=== PATIENT | male | born 1940 | race Caucasian/White ===

== ENCOUNTER 2017-06-21 09:25 | Emergency (ER) | payer OTHER ==
[2017-06-21] MEDS ORDERED: NS 0.9% 1000 ML* 1,000 ML IV ONE (09:26)
--- NOTE | 2017-06-21 09:44 | RAD ---
INDICATION: Neurologic change. Code mccoy COMPARISON: None TECHNIQUE: Noncontrast axial source images were acquired from the skull base to the vertex. FINDINGS: Ventricles/sulci: There is mild age-related cortical atrophy with compensatory dilatation of the CSF spaces. Brain parenchyma: There is mild periventricular and subcortical white matter change most consistent with chronic ischemia. Intracranial hemorrhage:None. Extra-axial spaces: There are no abnormal extra axial fluid collections or evidence of extra-axial mass. Calvarium: There is no calvarial fracture or other calvarial abnormality. Scalp: There is no evidence of scalp or extracalvarial soft tissue abnormality. Paranasal sinuses/mastoid: The paranasal sinuses and mastoid air cells are clear. Other: None. IMPRESSION: No acute intracranial findings. Findings called to ED at 0938 hours
[2017-06-21 09:49] LABS: Hematocrit 36 % (42-52); Mean Corpuscular HGB Conc 33 g/dl (31-36); Mean Corpuscular Hemoglobin 33 pg (27-31); Mean Corpuscular Volume 97 fL (80-94); Mean Platelet Volume 8 um3 (7.4-10.4); Red Blood Count 3.68 10^6/ul (4.0-5.4); Red Cell Distribution Width 14 % (10.5-15); White Blood Count 30.2 10^3/ul (3.5-10.8)
[2017-06-21 10:06] LABS: Add Diff/Slide Review? Slide Review Added; Comments Flag Yes
[2017-06-21 10:12] LABS: Albumin 4.1 g/dL (3.2-5.2); BUN/Creatinine Ratio 14.7 (8-20); Calcium 9.2 mg/dL (8.6-10.3); EGFR African American 91.1 (>60); EGFR Non-African American 70.8 (>60); Globulin 2.1 g/dL (2-4); Total Bilirubin 2.1 mg/dL (0.2-1.0); Total Protein 6.2 g/dL (6.4-8.9)
[2017-06-21 10:13] LABS: Troponin I 0.01 ng/mL (<0.04)
--- NOTE | 2017-06-21 10:21 | RAD ---
INDICATION: Neurologic change. Code mccoy COMPARISON: None TECHNIQUE: An AP portable view obtained at 0940 hours is submitted. FINDINGS: Bones/Soft Tissues: There are no acute bony findings. There is left-sided cardiac pacemaker/defibrillator Cardiomediastinal: The cardiomediastinal silhouette is normal. Lungs: There are no infiltrates. Pleura: There are no pleural effusions. Other: None IMPRESSION: NO ACTIVE DISEASE.
[2017-06-21 10:28] LABS: Neutrophil % 18 % (38-83); Reactive Lymph % 11 % (0-6)
[2017-06-21 10:29] LABS: Add Path Review? YES; RBC Morphology Normal (Normal)
[2017-06-21] MEDS ORDERED: Iohexol 350* (CONTRAST) 500 ML MDV IV ONE (10:43)
[2017-06-21 10:50] LABS: Potassium 4.6 mmol/L (3.5-5.0)
--- NOTE | 2017-06-21 11:36 | CONS ---
CC: Dr. Allen, Department of Cardiology, [facility]; Dr. Perez NEUROLOGY CONSULTATION: DATE OF CONSULT: 06/21/17 LOCATION: He is in the emergency room to be admitted. REFERRING PROVIDER: Dr. Ann. PRIMARY CARE PROVIDER: Dr. Jose Luis Perez. CHIEF COMPLAINT: Episode of slurred speech. HISTORY OF PRESENT ILLNESS: Castillo Otto is a 76-year-old right-handed man who was in his usual state of health at work today, at approximately 9 in the morning when he started to develop slurred speech when speaking on the phone to a customer. He was standing at his workspace at that time. His speech was slurred, but the words that he was intending came out appropriately. He asked the coworker if his speech sounded slurred and the coworker agreed that it did. Ambulance was summoned. On his way in or prior to being loaded onto the ambulance, the slurred speech resolved. He estimated lasting 20 minutes from beginning to end. Currently in the ER, he feels fine. There is no associated change in vision, diplopia, numbness of his face, headache, numbness of his limbs, or weakness or incoordination of his limbs that he was aware of. He was standing and able to walk at the time that it occurred. There is no prior history of transient ischemic attack or stroke. He has a history of coronary artery disease and had catheterization here in 2008 , which revealed significant coronary artery disease. He has had an ICD placed up in [facility] several years ago. He says it has has never gone off. When asked specifically about atrial fibrillation, he says he has "a little" that comes and goes, but it has never been recommended to begin anticoagulation. The only records that I have in our system are from 2008, so I do not have up-to-date on that regard. There is no recent history of trauma, surgery, history of intracranial hemorrhages, history of GI bleeding, or history of other bleeding events. Again , he has not had any headache today. He is not on anticoagulants other than aspirin. PAST MEDICAL HISTORY: Otherwise notable for asthma, CLL, and gastroesophageal reflux. He has had prostate surgery in the past. MEDICATIONS: At home consist of: 1. Aspirin 81 mg p.o. daily, which he did take this morning. 2. Coreg dose unknown b.i.d. 3. Ramipril dose unknown 1 per day. 4. Simvastatin dose unknown 1 p.o. daily. ALLERGIES: He says he is not allergic to any medications. FAMILY HISTORY: Noncontributory. SOCIAL HISTORY: He is a nonsmoker and never did. He does not drink alcohol at all. 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 There is no history of diabetes. Not sure if he has a history of hypertension as his ramipril and Coreg were started back when he was found to have heart disease. He denies intestinal problems. Did not note headaches or episodes of loss of consciousness. PHYSICAL EXAMINATION: He is fairly tall elderly gentleman who looks quite healthy, well-nourished, and well hydrated. Blood pressures running about 110/ 80. Heart rates running in the 60s, it is in sinus rhythm with frequent PVCs. Respiratory rate 16. Heart sounds to be in a regular rhythm other than occasional extra beats and I do not hear any murmurs. Carotid pulses are symmetrical and there are no anterior or posterior cervical bruits. Oral mucosa is moist and atraumatic. Lungs are clear bilaterally. Neurological Exam: Pupils react equally from 3.5 to 2.5 mm. Eye movements are full and visual hernandez are full to confrontation. Funduscopic exam is unremarkable bilaterally. Facial musculature is symmetric. Facial sensation to light touch is symmetric as well. Palate and tongue appear normal, palate rises symmetrically and tongue protrudes in the midline. There is no dysarthria. Hearing is intact bilaterally. Motor exam reveals no drift of any of his limbs. There is no spasticity. Strength seems normal proximally and distally. Finger taps are normal in the hands. [id number] maneuvers are normal bilaterally. I did not attempt to walk him. Sensory exam in the limbs is intact to light touch and pin discrimination bilaterally. Reflexes are intact and symmetric in upper extremities and the knees. Plantar responses are flexor bilaterally. He is alert and oriented and an excellent detailed historian. Memory is intact and language is fluent. He has good attention, concentration, and adequate fund of knowledge. DIAGNOSTIC STUDIES/LAB DATA: Laboratory data includes a CT scan of the brain interpreted by Dr. Joseph as showing some mild age related cortical atrophy and mild periventricular and subcortical white matter changes consistent with chronic ischemic changes. I reviewed the images and I agree. There is no evidence of acute or significant old infarctions. EKG reveals a sinus rhythm with occasional ectopic beats. His blood tests are all pending. It should be noted he had a platelet count on 04/15/16 of 95,000, but that is the last blood test I have available with me currently. IMPRESSION: Impression is that of a probable transient ischemic attack. Dysarthria is fairly nonspecific and could represent an anterior or posterior circulation event. He appears to have some cardiac risk in terms of possible intermittent atrial fibrillation. Currently, his NIH score is 0 and so we will just continue to evaluate. We will probably add Plavix next, but I am waiting for him to come back from CT angiography first to see if he has any significant large vessel disease, particularly extracranial large vessel disease. If not, then he should be admitted to telemetry, have an echocardiogram, have his lipid status checked, and we will add a Plavix as well. Further recommendations depend upon the results of his studies and hospital course. [id number]/[facility] #: [id number] SEUN
--- NOTE | 2017-06-21 11:48 | RAD ---
INDICATION: PA COMPARISON: CT brain same date TECHNIQUE: Axial source images were acquired with coronal and sagittal reconstructions. CT angiographic technique was utilized with injection of 80 mL Omnipaque 350. FINDINGS: Aortic arch: There are no CT angiogram abnormalities of the arch or the great vessels arising from the arch. Right carotid: The internal carotid artery, carotid bifurcation, extracranial portions of the internal carotid artery, carotid artery at the skull base, carotid siphon, and carotid termination appear patent. There is no significant stenosis at the carotid bifurcation. There is scant plaque formation. There is moderate atherosclerotic change with intimal consultations involving the carotid siphon but no significant stenosis. Left carotid:The internal carotid artery, carotid bifurcation, extracranial portions of the internal carotid artery, carotid artery at the skull base, carotid siphon, and carotid termination are interrogated. There is extensive calcific plaque formation with a critical stenosis at the origin of the left internal carotid artery. There are moderate intimal calcification is been no significant stenosis at the level of the left carotid siphon. Right middle and anterior cerebral arteries: There are no CT angiographic abnormalities of the middle or anterior cerebral arteries. Left middle and anterior cerebral arteries: There are no CT angiographic abnormalities of the middle or anterior cerebral arteries Right vertebral: The CT angiographic appearance of the vertebral artery is normal. Left vertebral: The CT angiographic appearance of the vertebral artery is normal. Basilar artery: The basilar artery and basilar tip appear normal. Posterior cerebral arteries: The distal distribution of the right and left posterior cerebral arteries is normal. [place]: The CT angiographic appearance of the [place] is normal. Source images show a 2 cm right apical lung mass which is obscured on chest radiograph by the anterior right first rib. There is no mass or adenopathy within the neck. There are no focal parenchymal abnormalities or abnormal areas of enhancement. IMPRESSION: 1. Critical left ICA stenosis at the level of bifurcation associated with extensive calcific plaque reformation. 2. Moderate arthroscopic plaque formation at the level of the carotid siphons but no significant stenosis. 3. No significant intracranial CT angiographic abnormalities. 4. 2 cm right apical lung mass. Suggest CT imaging of the chest. Findings called to ED. CPT II Codes: 3100F PQRS
[2017-06-21 12:13] LABS: Urine Bilirubin Negative (Negative); Urine Glucose Negative (Negative); Urine Nitrite Negative (Negative)
[2017-06-21] MEDS ORDERED: Clopidogrel TAB* 300 MG PO ONE (12:26)
[2017-06-21] MEDS ORDERED: Clopidogrel TAB* 300 MG ONE (12:27)
--- NOTE | 2017-06-21 13:41 | RAD ---
CPT II Codes: 3100F INDICATION: Sudden onset expressive aphasia. COMPARISON: CTA head and neck dated June 21, 2017 demonstrating coarsely calcified atherosclerosis at the left carotid bulb. TECHNIQUE: Multiple mak scale, color and doppler tracings of the common, internal and external carotid and vertebral arteries were obtained. Stenosis estimations reflect velocity criteria that have been correlated to angiographic stenosis calculations based on the distal internal carotid diameter. Right carotid: There is mild, minimally calcified plaque within the right carotid bulb. The peak systolic velocity in the proximal right internal carotid artery is 116 cm/s and the maximum end-diastolic velocity is 32 cm/s. The peak systolic velocity in the distal common carotid artery is 109 cm/s and the maximum end-diastolic velocity is 29 cm/s. The internal to common carotid ratio is 1.1. This would be consistent with a less than 50% stenosis. Left carotid: There is coarsely calcified atherosclerotic plaque within the left carotid bulb. The peak systolic velocity in the proximal right internal carotid artery is 331 cm/s and the maximum end-diastolic velocity is 78 cm/s. The peak systolic velocity in the distal common carotid artery is 115 cm/s and the maximum end-diastolic velocity is 28 cm/s. The internal to common carotid ratio is 2.9. This would be consistent with a greater than 70% stenosis. Vertebrals: There is antegrade flow in both vertebral arteries. IMPRESSION: According to the [employer] criteria there is greater than 70% degree stenosis at the left carotid bulb.
[2017-06-21] MEDS ORDERED: Clopidogrel TAB* 75 MG PO ONE (13:55)
--- NOTE | 2017-06-21 14:09 | ED ---
Duane Saini Angela, scribed for Richy Ann MD on 06/21/17 at 0927 . Neurological HPI - HPI Summary HPI Summary: Geo Mak overheard at 0922, ETA 2 minutes. This pt is a 76 y/o male presenting to [facility] c/o sudden onset of aphasia 20 minutes RELATIONS LIAISON. Per EMS, pt was unable to speak with his coworkers. EMS states the coworkers noticed the pt had slurred speech and called the ambulance. EMS reports aphasia lasted approximately less than 30 minutes. On arrival to the ED , pt's aphasia has resolved and is able to speak with no deficits. Pt denies weakness, numbness, paresthesia, headache, visual changes. Pt denies any PMHx of stroke. PMHx includes CAD, asthma, GERD. - History of Current Complaint Stated Complaint: POSS CODE ALISSA Hx Obtained From: Patient Onset/Duration: Sudden Onset, Started hours ago, Resolved Timing: Sudden Onset Character: Impaired Speech - Allergy/Home Medications Allergies/Adverse Reactions: Allergies Allergy/AdvReac Type Severity Reaction Status Date / Time No Known Allergies Allergy Verified 11/30/13 19:50 Home Medications: Home Medications Aspirin EC Low Dose* [Ecotrin EC Low Dose 81 MG*] 81 mg PO DAILY 06/21/17 [ History Confirmed 06/21/17] Carvedilol TAB* [Coreg TAB*] 6.25 mg PO BID 06/21/17 [History Confirmed 06/21/17 ] Ramipril CAP* [Altace CAP*] 5 mg PO DAILY 06/21/17 [History Confirmed 06/21/17] Simvastatin TAB(NF) [Zocor(NF)] 20 mg PO DAILY 06/21/17 [History Confirmed 06/21] PMH/Surg Hx/FS Hx/Imm Hx Endocrine/Hematology History: Denies: Hx Diabetes, Hx Thyroid Disease Cardiovascular History: Reports: Hx Coronary Artery Disease, Hx Hypercholesterolemia Denies: Hx Hypertension Respiratory History: Reports: Hx Asthma Denies: Hx Chronic Obstructive Pulmonary Disease (COPD) - Surgical History Surgery Procedure, Year, and Place: defib. cardiac stents - Family History Known Family History: Negative: Other - CVA - Social History Alcohol Use: None Substance Use Type: Reports: None Smoking Status (MU): Never Smoked Tobacco Review of Systems Negative: Fever, Chills Eyes: Negative Negative: Blurred Vision ENT: Negative Cardiovascular: Negative Neurological: Other - aphasia, now resolved Negative: Headache, Weakness, Paresthesia, Numbness All Other Systems Reviewed And Are Negative: Yes Physical Exam - Summary Physical Exam Summary: VITAL SIGNS: Reviewed. GENERAL: Patient is a well-developed and nourished male who is lying comfortable in the stretcher. Patient is not in any acute respiratory distress. HEAD AND FACE: No signs of trauma. No ecchymosis, hematomas or skull depressions. No sinus tenderness. EYES: PERRLA, EOMI x 2, No injected conjunctiva, no nystagmus. No photophobia. EARS: Hearing grossly intact. Ear canals and tympanic membranes are within normal limits. MOUTH: Oropharynx within normal limits. NECK: Supple, trachea is midline, no adenopathy, no JVD, no carotid bruit, no c- spine tenderness, neck with full ROM. No meningeal signs, no Kernig's or brudzinskis signs. CHEST: Symmetric, no tenderness at palpation LUNGS: Clear to auscultation bilaterally. No wheezing or crackles. CVS: Regular rate and rhythm, S1 and S2 present, no murmurs or gallops appreciated. ABDOMEN: Soft, non-tender. No signs of distention. No rebound no guarding, and no masses palpated. Bowel sounds are normal. EXTREMITIES: FROM in all major joints, no edema, no cyanosis or clubbing. NEURO: Alert and oriented x 3. No acute neurological deficits. Speech is normal and follows commands. NIH stroke scale = 0. SKIN: Dry and warm GCS: 15 Triage Information Reviewed: Yes Vital Signs On Initial Exam: Initial Vitals Temp Pulse Resp BP Pulse Ox 99.9 F 62 18 100/63 99 06/21/17 09:25 06/21/17 09:25 06/21/17 09:25 06/21/17 09:25 06/21/17 09:25 Vital Signs Reviewed: Yes Diagnostics - Vital Signs Vital Signs Temp Pulse Resp BP Pulse Ox 06/21/17 13:30 64 14 99 06/21/17 13:00 61 15 118/63 99 06/21/17 12:30 64 12 104/73 97 06/21/17 12:00 14 121/66 06/21/17 11:30 63 12 121/69 100 06/21/17 11:00 62 12 115/60 100 06/21/17 10:48 114/61 06/21/17 10:37 65 19 97 06/21/17 10:30 60 17 107/68 97 06/21/17 10:00 61 15 105/60 98 06/21/17 09:38 51 96 06/21/17 09:36 100/63 06/21/17 09:25 99.9 F 62 18 100/63 99 - Laboratory Lab Results: Lab Results 06/21/17 06/21/17 06/21/17 Range/Units 09:35 09:35 09:35 WBC 30.2 H (3.5-10.8) 10^3/ul RBC 3.68 L (4.0-5.4) 10^6/ul Hgb 12.0 L (14.0-18.0) g/dl Hct 36 L (42-52) % MCV 97 H (80-94) fL MCH 33 H (27-31) pg MCHC 33 (31-36) g/dl RDW 14 (10.5-15) % Plt Count 89 L (150-450) 10^3/ul MPV 8 (7.4-10.4) um3 Neut % (Auto) 18.2 L (38-83) % Lymph % (Auto) 77.4 H (25-47) % [place] % (Auto) 2.9 (1-9) % Eos % (Auto) 1.1 (0-6) % Baso % (Auto) 0.4 (0-2) % Absolute Neuts (auto) 5.5 (1.5-7.7) 10^3/ul Absolute Lymphs (auto) 23.4 H (1.0-4.8) 10^3/ul Absolute Monos (auto) 0.9 H (0-0.8) 10^3/ul Absolute Eos (auto) 0.3 (0-0.6) 10^3/ul Absolute Basos (auto) 0.1 (0-0.2) 10^3/ul Absolute Nucleated RBC 0.04 10^3/ul Neutrophils % 18 L (38-83) % Lymphocytes % 70 H (25-47) % Reactive Lymphs % 11 H (0-6) % Monocytes % 1 (0-13) % Nucleated RBC % 0.1 Normal RBC Morphology Normal (Normal) Hem Pathologist Commnt Pending INR (Anticoag Therapy) 1.01 (0.89-1.11) APTT 28.5 (26.0-36.3) seconds Sodium 134 (133-145) mmol/L Potassium 4.6 (3.5-5.0) mmol/L Chloride 103 (101-111) mmol/L Carbon Dioxide 27 (22-32) mmol/L Anion Gap 4 (2-11) mmol/L BUN 15 (6-24) mg/dL Creatinine 1.02 (0.67-1.17) mg/dL Est GFR ( Amer) 91.1 (>60) Est GFR (Non-Af Amer) 70.8 (>60) BUN/Creatinine Ratio 14.7 (8-20) Glucose 96 (70-100) mg/dL POC Glucose (mg/dL) (70-100) mg/dL Lactic Acid (0.5-2.0) mmol/L Calcium 9.2 (8.6-10.3) mg/dL Total Bilirubin 2.10 H (0.2-1.0) mg/dL AST 41 H (13-39) U/L ALT 33 (7-52) U/L Alkaline Phosphatase 104 (34-104) U/L Troponin I 0.01 (<0.04) ng/mL Total Protein 6.2 L (6.4-8.9) g/dL Albumin 4.1 (3.2-5.2) g/dL Globulin 2.1 (2-4) g/dL Albumin/Globulin Ratio 2.0 (1-3) Triglycerides 117 mg/dL Cholesterol 129 mg/dL LDL Cholesterol 57 mg/dL HDL Cholesterol 49.0 mg/dL Urine Color Urine Appearance Urine pH (5-9) Ur Specific [place] (1.010-1.030) Urine Protein (Negative) Urine Ketones (Negative) Urine Blood (Negative) Urine Nitrate (Negative) Urine Bilirubin (Negative) Urine Urobilinogen (Negative) Ur Leukocyte Esterase (Negative) Urine Glucose (Negative) Blood Type Antibody Screen 06/21/17 06/21/17 06/21/17 Range/Units 09:35 09:35 09:37 WBC (3.5-10.8) 10^3/ul RBC (4.0-5.4) 10^6/ul Hgb (14.0-18.0) g/dl Hct (42-52) % MCV (80-94) fL MCH (27-31) pg MCHC (31-36) g/dl RDW (10.5-15) % Plt Count (150-450) 10^3/ul MPV (7.4-10.4) um3 Neut % (Auto) (38-83) % Lymph % (Auto) (25-47) % [place] % (Auto) (1-9) % Eos % (Auto) (0-6) % Baso % (Auto) (0-2) % Absolute Neuts (auto) (1.5-7.7) 10^3/ul Absolute Lymphs (auto) (1.0-4.8) 10^3/ul Absolute Monos (auto) (0-0.8) 10^3/ul Absolute Eos (auto) (0-0.6) 10^3/ul Absolute Basos (auto) (0-0.2) 10^3/ul Absolute Nucleated RBC 10^3/ul Neutrophils % (38-83) % Lymphocytes % (25-47) % Reactive Lymphs % (0-6) % Monocytes % (0-13) % Nucleated RBC % Normal RBC Morphology (Normal) Hem Pathologist Commnt INR (Anticoag Therapy) (0.89-1.11) APTT (26.0-36.3) seconds Sodium (133-145) mmol/L Potassium (3.5-5.0) mmol/L Chloride (101-111) mmol/L Carbon Dioxide (22-32) mmol/L Anion Gap (2-11) mmol/L BUN (6-24) mg/dL Creatinine (0.67-1.17) mg/dL Est GFR ( Amer) (>60) Est GFR (Non-Af Amer) (>60) BUN/Creatinine Ratio (8-20) Glucose (70-100) mg/dL POC Glucose (mg/dL) 92 (70-100) mg/dL Lactic Acid 0.6 (0.5-2.0) mmol/L Calcium (8.6-10.3) mg/dL Total Bilirubin (0.2-1.0) mg/dL AST (13-39) U/L ALT (7-52) U/L Alkaline Phosphatase (34-104) U/L Troponin I (<0.04) ng/mL Total Protein (6.4-8.9) g/dL Albumin (3.2-5.2) g/dL Globulin (2-4) g/dL Albumin/Globulin Ratio (1-3) Triglycerides mg/dL Cholesterol mg/dL LDL Cholesterol mg/dL HDL Cholesterol mg/dL Urine Color Urine Appearance Urine pH (5-9) Ur Specific [place] (1.010-1.030) Urine Protein (Negative) Urine Ketones (Negative) Urine Blood (Negative) Urine Nitrate (Negative) Urine Bilirubin (Negative) Urine Urobilinogen (Negative) Ur Leukocyte Esterase (Negative) Urine Glucose (Negative) Blood Type A Positive Antibody Screen Negative 06/21/17 Range/Units 11:55 WBC (3.5-10.8) 10^3/ul RBC (4.0-5.4) 10^6/ul Hgb (14.0-18.0) g/dl Hct (42-52) % MCV (80-94) fL MCH (27-31) pg MCHC (31-36) g/dl RDW (10.5-15) % Plt Count (150-450) 10^3/ul MPV (7.4-10.4) um3 Neut % (Auto) (38-83) % Lymph % (Auto) (25-47) % [place] % (Auto) (1-9) % Eos % (Auto) (0-6) % Baso % (Auto) (0-2) % Absolute Neuts (auto) (1.5-7.7) 10^3/ul Absolute Lymphs (auto) (1.0-4.8) 10^3/ul Absolute Monos (auto) (0-0.8) 10^3/ul Absolute Eos (auto) (0-0.6) 10^3/ul Absolute Basos (auto) (0-0.2) 10^3/ul Absolute Nucleated RBC 10^3/ul Neutrophils % (38-83) % Lymphocytes % (25-47) % Reactive Lymphs % (0-6) % Monocytes % (0-13) % Nucleated RBC % Normal RBC Morphology (Normal) Hem Pathologist Commnt INR (Anticoag Therapy) (0.89-1.11) APTT (26.0-36.3) seconds Sodium (133-145) mmol/L Potassium (3.5-5.0) mmol/L Chloride (101-111) mmol/L Carbon Dioxide (22-32) mmol/L Anion Gap (2-11) mmol/L BUN (6-24) mg/dL Creatinine (0.67-1.17) mg/dL Est GFR ( Amer) (>60) Est GFR (Non-Af Amer) (>60) BUN/Creatinine Ratio (8-20) Glucose (70-100) mg/dL POC Glucose (mg/dL) (70-100) mg/dL Lactic Acid (0.5-2.0) mmol/L Calcium (8.6-10.3) mg/dL Total Bilirubin (0.2-1.0) mg/dL AST (13-39) U/L ALT (7-52) U/L Alkaline Phosphatase (34-104) U/L Troponin I (<0.04) ng/mL Total Protein (6.4-8.9) g/dL Albumin (3.2-5.2) g/dL Globulin (2-4) g/dL Albumin/Globulin Ratio (1-3) Triglycerides mg/dL Cholesterol mg/dL LDL Cholesterol mg/dL HDL Cholesterol mg/dL Urine Color Straw Urine Appearance Clear Urine pH 7.0 (5-9) Ur Specific [place] 1.017 (1.010-1.030) Urine Protein Negative (Negative) Urine Ketones Negative (Negative) Urine Blood Negative (Negative) Urine Nitrate Negative (Negative) Urine Bilirubin Negative (Negative) Urine Urobilinogen Negative (Negative) Ur Leukocyte Esterase Negative (Negative) Urine Glucose Negative (Negative) Blood Type Antibody Screen Result Diagrams: 06/21/17 09:35 06/21/17 09:35 Lab Statement: Any lab studies that have been ordered have been reviewed, and results considered in the medical decision making process. - Radiology Chest XR Xray Interpretation: No Acute Changes - IMPRESSION: No active disease. ED physician has reviewed this radiology report and agrees. Radiology Interpretation Completed By: Radiologist - CT Brain CT CT Interpretation: No Acute Changes - IMPRESSION: No acute intracranial findings. ED physician has reviewed this radiology report and agrees. CT Interpretation Completed By: Radiologist - EKG 0927 Cardiac Rate: NL - 60 bpm EKG Rhythm: Sinus Rhythm Ectopy: PVCs - multiple EKG Interpretation: No ST elevations. - Additional Comments Diagnostic Additional Comments: CTA Head/Neck, per radiologist: IMPRESSION: 1. Critical left ICA stenosis at the level of bifurcation associated with extensive calcific plaque reformation. 2. Moderate arthroscopic plaque formation at the level of the carotid siphons but no significant stenosis. 3. No significant intracranial CT angiographic abnormalities. 4. 2 cm right apical lung mass. Suggest CT imagine of the chest. ED physician has reviewed this radiology report and agrees. Carotid Doppler Study, bilateral, per radiologist: IMPRESSION: According to the NASA criteria is greater than 70% degree stenosis at the left carotid bulb. ED physician has reviewed this radiology report and agrees. NIH Scale - NIH Scale Level of Consciousness: Alert/Keenly Responsive Ask Patient the Month and His/Her Age: Both Correct Ask Pt to Open/Close Eyes and Stretcher And Drier/Release Non-Paretic Hand: Both Correctly Best Gaze (Only Horizontal Eye Movement): Normal Visual Field Testing: No Visual Loss Facial Paresis-Pt to Smile & Close Eyes or Grimace Symmetry: Normal/Symmetrical Motor Function - Right Arm: No Drift-Holds 10 Seconds Motor Function - Left Arm: No Drift-Holds 10 Seconds Motor Function - Right Leg: No Drift-Holds 10 Seconds Motor Function - Left Leg: No Drift-Holds 10 Seconds Limb Ataxia-Must be out of Proportion to Weakness Present: Absent Sensory (Use Pinprick to Test Arms/Legs/Trunk/Face): Normal Best Language (Describe Picture, Name Items): No Aphasia Dysarthria (Read Several Words): Normal Extinction and Inattention: No Abnormality Total Score: 0 Course/Dx - Course Assessment/Plan: Code Mak overheard at 0922, ETA 2 minutes. This pt is a 76 y/ o male presenting to [facility] c/o sudden onset of aphasia 20 minutes RELATIONS LIAISON. Per EMS, pt was unable to speak with his coworkers. EMS states the coworkers noticed the pt had slurred speech and called the ambulance. EMS reports aphasia lasted approximately less than 30 minutes. On arrival to the ED, pt's aphasia has resolved and is able to speak with no deficits. Pt denies weakness, numbness, paresthesia, headache, visual changes. Pt denies any PMHx of stroke. PMHx includes CAD, asthma, GERD. Test results show WBC of 30, hemoglobin of 12, hematocrit of 36, platelet count of 89. UA is negative for UTI. Chest XR shows no active disease. Brain CT reveals no acute intracranial findings. In the ED course, we called a code mak since the pt had an episode of speech aphasia. Dr. Tuttle at bedside, he recommended Plavix and a CTA. CTA head/neck shows 1. Critical left ICA stenosis at the level of bifurcation associated with extensive calcific plaque reformation. 2. Moderate arthroscopic plaque formation at the level of the carotid siphons but no significant stenosis. 3. No significant intracranial CT angiographic abnormalities. 4. 2 cm right apical lung mass. Suggest CT imagine of the chest. Patients leukocytosis or thrombocytopenia not addressed at this time. No signs of infections. Patient denies any cough and fever. Therefore patient was not placed in antibiotics. Patient will need a chest CT to further evaluate the lung mass. Dr. Tuttle discussed the case with Dr. Jesse Allen, farm equipment mechanic apprentice, from [facility] in [place] and they will arrange the pt for transfer for further work up and management. The pt is being transferred because of a severe left carotid stenosis with TIA. The pt needs an endarterectomy. Dr. Jesse Allen accepted the pt for transfer. Patient was given Plavix as per Dr. Tuttle. - Differential Dx Differential Diagnoses Neuro: Positive: Cerebrovascular Accident, Migraine, Seizure Disorder, Transient Ischemic Attack - Diagnoses Provider Diagnoses: TIA (transient ischemic attack), Left carotid stenosis, Lung mass, Leukocytosis - Physician Notifications Discussed Care Of Patient With: Jericho Narayanan Time Discussed With Above Provider: 09:39 Instructed by Provider To: Other - Dr. Narayanan reported a negative brain CT. [09 :41] Dr. Tuttle reported the pt is not a candidate for tPA as the symptoms have resolved. [12:55] Dr. Tuttle spoke with Dr. Jesse Allen, farm equipment mechanic apprentice, in [facility] (in [place]) and he recommends for the pt to be transferred to their facility. Dr. Allen will contact the vascular surgeon for th transfer. The pt has a left carotid stenosis with a TIA needed for an endarterectomy. Discharge - Discharge Plan Condition: Stable Disposition: [facility] Discharge Disposition Comment: [place], [place] Referrals: Jose Luis Perez MD [Primary Care Provider] - The documentation as recorded by the Duane pink Angela accurately reflects the service I personally performed and the decisions made by me, Richy Ann MD.
[2017-06-21 15:26] VITALS: BP 113/62
== END 2017-06-21 15:28 | disposition short-term general hospital (02) ==
LOC: ED 09:25
DX: G45.9 Transient cerebral ischemic attack, unspecified (principal); I65.22 Occlusion and stenosis of left carotid artery; R91.8 Other nonspecific abnormal finding of lung field; D72.829 Elevated white blood cell count, unspecified
CPT/HCPCS: 36415; 70450; 70496; 70498; 71010; 80053; 80061; 81003; 83605; 84484; 85025; 85060; 85610; 85730; 86850; 86900; 86901; 93005; 93880; 99283; A9270-GY; Q9967